=== PATIENT | female | born 1995 | race Two or more races ===

== ENCOUNTER 2018-10-04 10:51 | Observation (INO) | payer MEDICAID | END 2018-10-04 12:25 | disposition home or self-care (01) | DRG 563 | LOC: LDRP 10:51 | PROVIDERS: ADMIT Specialist; ATTEND Specialist | DX: O60.03 Preterm labor without delivery, third trimester (principal); Z3A.34 34 weeks gestation of pregnancy | CPT/HCPCS: 59025; 76818; 81002; G0378 ==

== ENCOUNTER 2018-10-07 11:02 | Observation (INO) | payer MEDICAID ==
[2018-10-07] MEDS ORDERED: PREN-96 PO (11:55)
== END 2018-10-07 13:20 | disposition home or self-care (01) | DRG 566 ==
LOC: LDRP 11:02
PROVIDERS: ADMIT Specialist; ATTEND Specialist
DX: O26.893 Other specified pregnancy related conditions, third trimester (principal); H53.8 Other visual disturbances; Z3A.35 35 weeks gestation of pregnancy
CPT/HCPCS: 59025; 76818; 81002; G0378

== ENCOUNTER 2018-10-11 13:07 | Observation (INO) | payer MEDICAID ==
[~2018-10-11 13:07] MED LIST: PREN-96 PO
[2018-10-11] MEDS ORDERED: PREN-96 PO (14:03)
== END 2018-10-11 13:55 | disposition home or self-care (01) | DRG 566 ==
LOC: LDRP 13:07
PROVIDERS: ADMIT Specialist; ATTEND Specialist
DX: O35.8XX0 Maternal care for other (suspected) fetal abnormality and damage, not applicable or unspecified (principal); Z3A.35 35 weeks gestation of pregnancy
CPT/HCPCS: 59025; 76818; 81002; G0378

== ENCOUNTER 2018-10-18 15:03 | Observation (INO) | payer MEDICAID | END 2018-10-18 16:45 | disposition home or self-care (01) | DRG 566 | LOC: LDRP 15:03 | PROVIDERS: ADMIT Obstetrics & Gynecology; ATTEND Obstetrics & Gynecology | DX: O36.5930 Maternal care for other known or suspected poor fetal growth, third trimester, not applicable or unspecified (principal); Z3A.36 36 weeks gestation of pregnancy; Z88.0 Allergy status to penicillin | CPT/HCPCS: 59025; 76818; 81002; G0378 ==

== ENCOUNTER 2018-10-25 11:40 | Observation (INO) | payer MEDICAID | END 2018-10-25 15:51 | disposition home or self-care (01) | DRG 566 | LOC: LDRP 14:20 | PROVIDERS: ADMIT Specialist; ATTEND Specialist | DX: O36.5930 Maternal care for other known or suspected poor fetal growth, third trimester, not applicable or unspecified (principal); O26.893 Other specified pregnancy related conditions, third trimester; M54.9 Dorsalgia, unspecified; O69 Labor and delivery complicated by umbilical cord complications; Z3A.37 37 weeks gestation of pregnancy | CPT/HCPCS: 59025; 76818; 81002; G0378 ==

== ENCOUNTER 2018-10-30 10:23 | Observation (INO) | payer MEDICAID ==
[~2018-10-30] VITALS: Ht 152.4 cm; Wt 57.6 kg
== END 2018-11-01 15:00 | disposition home or self-care (01) | DRG 560 ==
LOC: LDRP 11-01 13:15
PROVIDERS: ADMIT Specialist; ATTEND Specialist
DX: O69.5XX1 Labor and delivery complicated by vascular lesion of cord, fetus 1 (principal); O26.893 Other specified pregnancy related conditions, third trimester; Z3A.38 38 weeks gestation of pregnancy
CPT/HCPCS: 59025; 76805; 76818; 81002; G0378

== ENCOUNTER 2018-11-05 17:00 | Observation (INO) | payer MEDICAID | END 2018-11-05 18:00 | disposition home or self-care (01) | DRG 560 | LOC: LDRP 17:00 | PROVIDERS: ADMIT Specialist; ATTEND Specialist | DX: O69.5XX2 Labor and delivery complicated by vascular lesion of cord, fetus 2 (principal); Z3A.39 39 weeks gestation of pregnancy | CPT/HCPCS: 59025; 76818; 81002; G0378 ==

== ENCOUNTER 2018-11-08 14:32 | Observation (INO) | payer MEDICAID | END 2018-11-08 17:06 | disposition home or self-care (01) | DRG 566 | LOC: LDRP 14:32 | PROVIDERS: ADMIT Obstetrics & Gynecology; ATTEND Obstetrics & Gynecology | DX: O36.5930 Maternal care for other known or suspected poor fetal growth, third trimester, not applicable or unspecified (principal); O26.893 Other specified pregnancy related conditions, third trimester; O21.2 Late vomiting of pregnancy; R51 Headache; O36.8130 Decreased fetal movements, third trimester, not applicable or unspecified; O69.5XX2 Labor and delivery complicated by vascular lesion of cord, fetus 2; Z3A.39 39 weeks gestation of pregnancy | CPT/HCPCS: 59025; 76805; 76818; 81002; G0378 ==

== ENCOUNTER 2018-11-11 02:50 | Observation (INO) | payer MEDICAID ==
[~2018-11-11] VITALS: Ht 152.4 cm; Wt 54.4 kg
== END 2018-11-11 03:55 | disposition home or self-care (01) | DRG 566 ==
LOC: LDRP 02:50
PROVIDERS: ADMIT Obstetrics & Gynecology; ATTEND Obstetrics & Gynecology
DX: O62.9 Abnormality of forces of labor, unspecified (principal); O26.893 Other specified pregnancy related conditions, third trimester; N89.8 Other specified noninflammatory disorders of vagina; O48.0 Post-term pregnancy; Z3A.40 40 weeks gestation of pregnancy
CPT/HCPCS: 59025; 81002; G0378

== ENCOUNTER → 2023-08-01 | Outpatient (CLI) | payer MEDICAID ==
[2023-08-01 11:51] LABS: Basophils # (auto) 0 10 ^3/uL (0-0.2); Basophils % (auto) 0.4 % (0.0-2.0); Eosinophils # (auto) 0 10 ^3/uL (0-0.8); Eosinophils % (auto) 0.5 % (0.0-7.0); Lymphocytes # (auto) 2.2 10 ^3/uL (0.4-5.4); Mean Corpuscular Hgb Conc. 34.9 g/dL (32.0-36.0); Mean Corpuscular Volume 88.7 fL (80.0-100.0); Monocytes # (auto) 0.4 10 ^3/uL (0-1.3); Monocytes % (auto) 5.2 % (0.0-12.0); Neutrophils # (auto) 4.4 10 ^3/uL (1.6-8.6); Neutrophils % (auto) 62.9 % (37.0-80.0); Nucleated Red Blood Cells % 0.1 %; Red Blood Cells 4.51 10^6/uL (4.0-5.20); Red Cell Distribution Width 13.2 % (11.8-14.3); White Blood Cell 6.9 10^3/uL (4.4-10.8)
[2023-08-01 12:09] LABS: Amphetamine Screen, Urine Neg (NEGATIVE); Barbiturate Scree,Urine Neg (NEGATIVE); Benzodiazephine Screen, Urine Neg (NEGATIVE); Cannabinoid Screen, Urine Neg (NEGATIVE); Cocaine Screen, Urine Neg (NEGATIVE); Opiate Scree,Urine Neg (NEGATIVE); Phencyclidine Screen, Urine Neg (NEGATIVE)
[2023-08-01 12:14] LABS: Alanine Aminotransferase 20 U/L (7-40); Albumin 4.5 g/dL (3.2-4.8); Alkaline Phosphatase 60 U/L (46-116); Anion Gap 9 (5-15); Aspartate Aminotransferase 17 U/L (13-40); Calcium 9.6 mg/dL (8.5-10.1); Carbon Dioxide 22 mmol/L (20-30); Chloride 105 mmol/L (98-107); Cholesterol 181 mg/dL (< 200); Glucose 83 mg/dL (74-106); LDL Cholesterol 107 mg/dL (< 100); Potassium 3.7 mmol/L (3.5-5.1); Sodium 136 mmol/L (136-145); Triglycerides 143 mg/dL (< 150)
[2023-08-01 12:15] LABS: Bilirubin, Total 0.5 mg/dL (0.2-1.0); HDL Cholesterol 55 mg/dL (40-59); Total Protein 7.6 g/dL (5.7-8.2)
[2023-08-01 12:18] LABS: BUN/Creatinine Ratio 8.8 (10.0-20.0); Blood Urea Nitrogen < 5 mg/dL (9-23)
[2023-08-01 12:24] LABS: Beta HCG, Quantitative 99903.8 mIU/mL (1.5-4.2)
[2023-08-02 07:07] LABS: RPR Non Reactive (Non Reactive)
[2023-08-02 08:07] LABS: Varicella Zoster IgG Antibody 1195 index (Immune >165)
[2023-08-02 22:06] LABS: Chlamydia Trachomatis, NAA Positive (Negative); Neisseria gonorrhoeae, NAA Negative (Negative)
[2023-08-03 12:06] LABS: QuantiFERON-TB Gold Plus Negative (Negative)
== END | disposition home or self-care (01) ==
LOC: LAB 11:11
PROVIDERS: ATTEND Obstetrics & Gynecology
DX: Z34.80 Encounter for supervision of other normal pregnancy, unspecified trimester (principal); Z31.430 Encounter of female for testing for genetic disease carrier status for procreative management; N39.0 Urinary tract infection, site not specified; Z36.0 Encounter for antenatal screening for chromosomal anomalies; Z3A.00 Weeks of gestation of pregnancy not specified
CPT/HCPCS: 36415; 80053; 80061; 80307; 83036; 84439; 84443; 84702; 85025; 86592; 86703; 86762; 86787; 86850; 86900; 86901; 87086; 87340

== ENCOUNTER 2023-08-22 16:29 | Emergency (ER) | payer MEDICAID ==
[~2023-08-22] VITALS: Ht 157.5 cm; Wt 63.7 kg
[2023-08-22 18:38] LABS: Urine Bacteria None Seen /hpf (None Seen)
[2023-08-22] MEDS: PROMETHAZINE HCL 6.25 MG/5 ML ORAL SYRUP PO ONE (18:50)
[2023-08-22 18:59] LABS: Urine Blood Negative /uL (Negative); Urine Clarity Turbid (Clear); Urine Color Yellow (Yellow); Urine Mucus FEW (None Seen); Urine Protein, UAD 1+ (Negative); Urine Specific Gravity 1.022 (1.001-1.035); Urine Urobilinogen Normal (Negative); Urine WBC 9 /hpf (0 - 5)
[2023-08-22] MEDS ORDERED: ACET500T58 PO (19:20)
[2023-08-22] MEDS ORDERED: CEPH500C PO (19:20)
[2023-08-22 20:14] LABS: Rapid Influenza A Negative (Negative); Rapid Influenza B Negative (Negative)
[2023-08-22 20:15] LABS: COVID19 ANTIGEN SOFIA FIA NEGATIVE (NEGATIVE)
[2023-08-22 20:59] VITALS: BP 119/84; PULSE 87; RESP 16; TEMP 98; O2SAT 100
== END 2023-08-22 21:01 | disposition home or self-care (01) ==
LOC: ER 16:29
DX: O23.42 Unspecified infection of urinary tract in pregnancy, second trimester (principal); N39.0 Urinary tract infection, site not specified; R51.9 Headache, unspecified; J06.9 Acute upper respiratory infection, unspecified; Z3A.14 14 weeks gestation of pregnancy; Z20.822 Contact with and (suspected) exposure to COVID-19
CPT/HCPCS: 36415; 81001; 87426; 87804

== ENCOUNTER → 2023-10-30 | Outpatient (CLI) | payer MEDICAID ==
[~2023-10-30] MED LIST changes: +ACET500T58 PO; +CEPH500C PO
[2023-10-30 09:13] LABS: Basophils # (auto) 0 10 ^3/uL (0-0.2); Basophils % (auto) 0.3 % (0.0-2.0); Eosinophils # (auto) 0 10 ^3/uL (0-0.8); Eosinophils % (auto) 0.6 % (0.0-7.0); Hematocrit 35.2 % (36.0-46.0); Hemoglobin 12.4 g/dL (12.2-16.2); Lymphocytes # (auto) 1.7 10 ^3/uL (0.4-5.4); Lymphocytes % (auto) 24.8 % (10.0-50.0); Mean Corpuscular Hemoglobin 32.1 pg (28.0-32.0); Mean Corpuscular Hgb Conc. 35.3 g/dL (32.0-36.0); Monocytes # (auto) 0.4 10 ^3/uL (0-1.3); Monocytes % (auto) 5.7 % (0.0-12.0); Neutrophils # (auto) 4.6 10 ^3/uL (1.6-8.6); Neutrophils % (auto) 68.6 % (37.0-80.0); Platelet Count (auto) 266 10^3/uL (140-450); Red Blood Cells 3.86 10^6/uL (4.0-5.20); Red Cell Distribution Width 13.7 % (11.8-14.3); White Blood Cell 6.8 10^3/uL (4.4-10.8)
[2023-10-30 09:57] LABS: Alanine Aminotransferase 30 U/L (7-40); Albumin 3.8 g/dL (3.2-4.8); Alkaline Phosphatase 76 U/L (46-116); Anion Gap 9 (5-15); Aspartate Aminotransferase 21 U/L (13-40); Calcium 9.1 mg/dL (8.7-10.4); Carbon Dioxide 21 mmol/L (20-30); Chloride 107 mmol/L (98-107); Glucose 81 mg/dL (74-106); Potassium 3.9 mmol/L (3.5-5.1); Sodium 137 mmol/L (136-145)
[2023-10-30 09:58] LABS: BUN/Creatinine Ratio 10.4 (10.0-20.0); Bilirubin, Total 0.5 mg/dL (0.2-1.0); Blood Urea Nitrogen < 5 mg/dL (9-23); Total Protein 6.6 g/dL (5.7-8.2)
[2023-10-31 08:06] LABS: RPR Non Reactive (Non Reactive)
[2023-10-31 22:06] LABS: Chlamydia Trachomatis, NAA Negative (Negative); Neisseria gonorrhoeae, NAA Negative (Negative)
== END | disposition home or self-care (01) ==
LOC: LAB 08:49
PROVIDERS: ATTEND Obstetrics & Gynecology
DX: Z34.00 Encounter for supervision of normal first pregnancy, unspecified trimester (principal); Z3A.00 Weeks of gestation of pregnancy not specified
CPT/HCPCS: 36415; 80053; 82951; 83036; 84439; 84443; 85025; 86592; 86850; 86900; 86901

== ENCOUNTER 2024-02-15 10:50 | Inpatient (IN) | payer MEDICAID ==
[~2024-02-15] VITALS: Ht 160 cm; Wt 66.7 kg
--- NOTE | 2024-02-15 13:51 | DVH ---
BIOPHYSICAL PROFILE HISTORY: bleeding TECHNIQUE: Multiple transabdominal real-time grayscale sonographic images through the gravid uterus of the fetus with duplex Doppler color flow and M-mode spectral analysis FINDINGS: BIOPHYSICAL PROFILE: breathing score: 2 movement score: 2 tone score: 2 Quantitative PLACIDO score: 2 (PLACIDO: 9 Cm.) Total score: 8 The cervix was not seen Single live fetus in cephalic presentation. heart rate 141 beats per minute. Grade I placenta without previa or abruption IMPRESSION: Biophysical profile score: 8
--- NOTE | 2024-02-15 15:00 | DVHHP ---
ADMIT DATE: 02/15/2024 CHIEF COMPLAINT: Nonreassuring heart tracing. HISTORY OF PRESENT ILLNESS: The patient is a 28-year-old 2, para 1 with EDC 02/18/2024, estimated gestational age of 39+ weeks, admitted for induction of labor secondary to some subtle, small variables, patient was supposed to be induced on Monday. Subsequently, we decided to keep the patient for induction. PAST MEDICAL HISTORY: None. PAST SURGICAL HISTORY: None. SOCIAL HISTORY: None. FAMILY HISTORY: None. OBSTETRIC AND GYNECOLOGIC HISTORY: One normal vaginal delivery. REVIEW OF SYSTEMS: Consistent with HPI. PHYSICAL EXAMINATION: VITAL SIGNS: Stable, afebrile. HEENT: Within normal limits. CARDIOVASCULAR: Regular rate and rhythm. LUNGS: Clear to auscultation. BREASTS: Symmetrical. No masses. ABDOMEN: Gravid. Positive heart. PELVIC: 1 cm, 50%, -2. EXTREMITIES: No clubbing, cyanosis or edema. IMPRESSION: Intrauterine at 39+ weeks, induction of labor. PLAN: Expectant vaginal delivery. Informed consent obtained. DO DOROTEO Oviedo/JULIET TID: [id number] RECEIPT: [id number]
[2024-02-15] MEDS ORDERED: LIDOCAINE 2%HCL (LOCAL ANESTH.) INJ 20ML MDV IJ PRN (15:45)
[2024-02-15] MEDS ORDERED: BUTORPHANOL TARTRATE 2 MG/1 ML VIAL IV PRN ×2 (15:45)
--- NOTE | 2024-02-15 15:46 | DVHPN2 ---
Chief Complaints Patient reports: No new complaints Nursing reports: No new complaints Objective Medications Current Medications Medications (Trade) Dose Ordered Sig/Felice Route PRN Reason Start Time Stop Time Status Last Admin Benzocaine (Dermoplast) 1 applic PRN PRN TOP PERINEAL AREA DISCOMFORT 02/15/24 15:45 UNV Butorphanol Tartrate (Stadol Injection) 1 mg Q4HPRN PRN IV MODERATE PAIN (4-6 PAIN SCALE) 02/15/24 15:45 UNV Butorphanol Tartrate (Stadol Injection) 2 mg Q4HPRN PRN IV SEVERE PAIN (7-10 PAIN SCALE) 02/15/24 15:45 UNV Clindamycin Phosphate 50 ml @ 50 mls/hr Q8HR IV 02/15/24 22:00 UNV Lactated Ringer's 1,000 ml @ 125 mls/hr Q8H IV 02/15/24 15:45 UNV Lidocaine HCl (Xylocaine) 20 ml ONCE PRN IJ PERINEAL AREA DISCOMFORT 02/15/24 15:45 UNV Sodium Lauryl Sulfate (Phisoderm) 240 ml PRN PRN TOP PERINEAL AREA DISCOMFORT 02/15/24 15:45 UNV Witch Clementine (Tucks) 1 pad PRN PRN TOP PERINEAL AREA DISCOMFORT 02/15/24 15:45 UNV Others VE-UNCHANGED Ass/Plan Assessment IUP AT 39WKS IOL Plan SUPPORTIVE CARE DELORIS YEH DO Feb 15, 2024 15:46
[2024-02-15 16:31] LABS: Basophils # (auto) 0 10 ^3/uL (0-0.2); Basophils % (auto) 0.3 % (0.0-2.0); Eosinophils # (auto) 0 10 ^3/uL (0-0.8); Eosinophils % (auto) 0.4 % (0.0-7.0); Hematocrit 33.9 % (36.0-46.0); Hemoglobin 11.3 g/dL (12.2-16.2); Lymphocytes # (auto) 2.2 10 ^3/uL (0.4-5.4); Lymphocytes % (auto) 26.1 % (10.0-50.0); Mean Corpuscular Hemoglobin 27.6 pg (28.0-32.0); Mean Corpuscular Hgb Conc. 33.4 g/dL (32.0-36.0); Mean Corpuscular Volume 82.7 fL (80.0-100.0); Monocytes # (auto) 0.4 10 ^3/uL (0-1.3); Monocytes % (auto) 4.6 % (0.0-12.0); Neutrophils # (auto) 5.6 10 ^3/uL (1.6-8.6); Neutrophils % (auto) 68.6 % (37.0-80.0); Platelet Count (auto) 197 10^3/uL (140-450); Red Cell Distribution Width 14.8 % (11.8-14.3); White Blood Cell 8.2 10^3/uL (4.4-10.8)
[2024-02-15 16:48] LABS: INR 0.95 (0.9-1.15); Partial Thromboplastin Time 29.6 SEC (24.5-34.5); Prothrombin Time 10.1 sec (9.3-11.8)
[2024-02-15 16:58] LABS: Alanine Aminotransferase 11 U/L (7-40); Albumin 3.7 g/dL (3.2-4.8); Alkaline Phosphatase 176 U/L (46-116); Anion Gap 7 (5-15); Aspartate Aminotransferase 15 U/L (13-40); BUN/Creatinine Ratio 9.6 (10.0-20.0); Bilirubin, Total 0.3 mg/dL (0.2-1.0); Blood Urea Nitrogen < 5 mg/dL (9-23); Calcium 9.2 mg/dL (8.7-10.4); Carbon Dioxide 24 mmol/L (20-31); Chloride 108 mmol/L (98-107); Glucose 74 mg/dL (74-106); Sodium 139 mmol/L (136-145); Total Protein 6.5 g/dL (5.7-8.2)
[2024-02-15 17:27] LABS: Urine Bacteria None Seen /hpf (None Seen); Urine WBC None Seen /hpf (0 - 5)
[2024-02-15 17:48] LABS: Urine Blood Negative /uL (Negative); Urine Clarity Clear (Clear); Urine Color Colorless (Yellow); Urine Protein, UAD Negative (Negative); Urine Specific Gravity 1.002 (1.001-1.035); Urine Urobilinogen Normal (Negative); Urine pH 6.5 (5.0-9.0)
[2024-02-15 17:56] LABS: Amphetamine Screen, Urine Neg (NEGATIVE); Barbiturate Scree,Urine Neg (NEGATIVE); Benzodiazephine Screen, Urine Neg (NEGATIVE); Cocaine Screen, Urine Neg (NEGATIVE)
[2024-02-15 17:57] LABS: Cannabinoid Screen, Urine Neg (NEGATIVE); Opiate Scree,Urine Neg (NEGATIVE); Phencyclidine Screen, Urine Neg (NEGATIVE)
[2024-02-15] MEDS: LACTATED RINGER'S 1,000 ML IV SCH (23:38)
[2024-02-16] MEDS ORDERED: ePHEDrine SULFATE 50 MG/ML AMP IV ONE (01:15)
[2024-02-16] MEDS ORDERED: NALOXONE HCL 0.4 MG/ML VIAL IV ONE (01:15)
[2024-02-16] MEDS ORDERED: LIDOCAINE HCL 2 %PF INJ 10ML AMP IJ ONE (01:15)
[2024-02-16] MEDS: LACTATED RINGER'S 1,000 ML IV ONE (01:56)
[2024-02-16] MEDS: ROPIVACAINE HCL 100 ML ONE (02:47)
[2024-02-16] MEDS: PHISODERM TOP SOLN 240ML BTL TOP PRN (02:50)
[2024-02-16] MEDS: DERMOPLAST 60ML BOTTLE TOP PRN (02:50)
[2024-02-16] MEDS: WITCH HAZEL-GLYCERIN PAD TOP PRN (02:50)
[2024-02-16] MEDS: CLINDAMYCIN 300MG IV 50 ML IV SCH (02:51)
[2024-02-16] MEDS: CLINDAMYCIN 900MG IV 50 ML IV SCH (03:08)
[2024-02-16] MEDS ORDERED: LIDOCAINE 2% (LOCAL ANESTH.) PF 5ml SDV ONE (05:31)
[2024-02-16] MEDS ORDERED: MORPHINE SULF PF 5 MG/10 ML VIAL ONE (05:31)
[2024-02-16] MEDS ORDERED: ONDANSETRON HCL 4 MG/2 ML VIAL ONE (05:33)
[2024-02-16] MEDS ORDERED: oxyTOCIN 10 UNIT/ML 10ML VIAL ONE (05:33)
[2024-02-16] MEDS ORDERED: CARBOPROST TROMETHAMINE 250 MCG/1ML VIAL IM PRN (05:45)
[2024-02-16] MEDS ORDERED: ONDANSETRON HCL 4 MG/2 ML VIAL IV PRN (05:45)
[2024-02-16] MEDS ORDERED: METHYLERGONOVINE MALEATE 0.2 MG/ML AMP IM PRN (05:45)
[2024-02-16] MEDS: LACT. RINGERS/OXYTOCIN 20UNITS 500 ML IV ONE ×2 (06:14)
[2024-02-16] MEDS ORDERED: ONDANSETRON ODT 4 MG TAB PO PRN (07:00)
[2024-02-16] MEDS ORDERED: ACETAMINOPHEN 325 MG TAB PO PRN (07:00)
[2024-02-16 07:06] LABS: RPR Non Reactive (Non Reactive)
--- NOTE | 2024-02-16 07:10 | LDN2 ---
Labor and Delivery Note Date 02/16/24 Age 28 2 Para 2 EDC 12-15 EGA 39wks Diagnosis iol for non reassuring fht ,iugr Vaginal Delivery: VTX Vacuum Assisted: Yes Placenta: Spontaneous Sex: Male Apgars 8-9 Nuchal Cord Transected: No Amniotic Fluid: Clear Anesthesia epidural Episiotomy: No Extension: No EBL 300ml Labs Laboratory Tests 02/15/24 16:11: Hepatitis B Surface Antigen Negative, HIV (1&2) Antibody Negative 08/01/23 11:23: Rubella Antibody Positive Blood Bank 02/15/24 16:11: Blood Type O POSITIVE Complications none Conditions stable Comments/Significant Med Lidia spec exam no cxal lac,cord ph 7.25 DELORIS YEH DO Feb 16, 2024 07:09
[2024-02-16 08:06] LABS: Rubella Antibodies, IgG 3.49 index (Immune >0.99)
[2024-02-16] MEDS ORDERED: DIPHENOXYLATE W/ATROPINE 2.5 MG TAB PO SCH (10:00)
[2024-02-16 11:00] VITALS: BP 116/66; PULSE 63; RESP 18; TEMP 98.6; O2SAT 97
[2024-02-16] MEDS: IBUPROFEN 600 MG TAB PO PRN (13:05)
[2024-02-16 15:00] VITALS: BP 112/77; PULSE 77; RESP 16; TEMP 98; O2SAT 97
[2024-02-16 19:00] VITALS: BP 110/73; PULSE 74; RESP 16; TEMP 97.8; O2SAT 98
[2024-02-16 23:00] VITALS: BP 112/71; PULSE 65; RESP 16; TEMP 97.9; O2SAT 100
[2024-02-17 03:00] VITALS: BP 98/66; PULSE 58; RESP 18; TEMP 98.2; O2SAT 100
[2024-02-17 06:45] VITALS: BP 117/74; PULSE 63; RESP 16; TEMP 97.8; O2SAT 98
--- NOTE | 2024-02-17 06:52 | DVHPN2 ---
Progress Note Date Seen: Feb 17, 2024 Subjective PPD#1 s/p doing well Denies pain. Lochia minimal. AFeb vital signs Vital Sign Date Time Temp Pulse Resp B/P (MAP) Pulse Ox O2 Delivery O2 Flow Rate FiO2 02/17/24 03:00 98.2 58 18 98/66 (77) 100 98.2 02/16/24 19:00 Room Air 0.0 Total Intake and Output 02/16/24 02/16/24 02/17/24 15:00 23:00 07:00 Output Total 300 ml 400 ml Balance -300 ml -400 ml medications Current Medications Medications Dose Ordered Sig/Felice Route Start Time Stop Time Status Last Admin Dose Admin Turner Clementine 1 pad PRN PRN TOP 02/15/24 15:45 02/16/24 02:50 1 PAD Sodium Lauryl Sulfate 240 ml PRN PRN TOP 02/15/24 15:45 02/16/24 02:50 240 ML Benzocaine 1 applic PRN PRN TOP 02/15/24 15:45 02/16/24 02:50 1 APPLIC Butorphanol Tartrate 1 mg Q4HPRN PRN IV 02/15/24 15:45 Butorphanol Tartrate 2 mg Q4HPRN PRN IV 02/15/24 15:45 Lidocaine HCl 20 ml ONCE PRN IJ 02/15/24 15:45 Ondansetron HCl 4 mg Q4HP PRN IV 02/16/24 05:45 Ibuprofen 600 mg Q6HP PRN PO 02/16/24 07:00 02/16/24 20:47 600 MG Acetaminophen 650 mg Q4HP PRN PO 02/16/24 07:00 Ondansetron HCl 4 mg Q4HPRN PRN PO 02/16/24 07:00 laboratory and microbiology Laboratory Tests 02/15/24 16:11 Test 02/15/24 16:11 Range/Units Serum Glucose 74 74-106 mg/dL Objective O: AFVSS Chest: heart and lung sounds normal. Abd soft, non-tender, fundus firm, BS, no rebound or guarding, Ext Neg Homans, Non-tender, edema Lochia - minimal Labs reviewed Assessment/Plan 28y s/p doing well PPD#2 Plan D/C planning supportive care Plan discussed with: Patient LESLI CROWLEY DO Feb 17, 2024 06:52
[2024-02-17] MEDS ORDERED: IBU600T PO (06:55)
--- NOTE | 2024-02-17 06:56 | DVHDS2 ---
Physician Discharge Progress N Final Diagnosis: Term , delivered s/p Operations or Procedures: Operations or Procedures uncomplicated Commentary: Commentary NOrmal labor and delivery uncomplicated Normal course Condition on Discharge: Stable Disposition: Home Discharge Instructions: Diet: Regular Activity: Light activity Activity comment: Pelvic Rest x 6 weeks Follow Up/Referral: [address] Crowley Medications: Ibuprofen PRN Follow Up Care: Discharge Statement: "Patient was advised to return to the ER or call 911 if any headaches, dizz iness, shortness of breath, chest pain, abdominal pain, bleeding, fevers, or worsening of medical condition. Patient was counseled about treatment plan, medications, possible side effects, patientverbalized understanding. All questions were answered to the best of my ability. This discharge took greater then 30 minutes in planning, reviewing documentation, counseling the patient, and discussing with other team members." LESLI CROWLEY DO Feb 17, 2024 06:56
[2024-02-17 09:23] LABS: Basophils # (auto) 0 10 ^3/uL (0-0.2); Basophils % (auto) 0.2 % (0.0-2.0); Eosinophils # (auto) 0.1 10 ^3/uL (0-0.8); Eosinophils % (auto) 0.9 % (0.0-7.0); Hematocrit 30.5 % (36.0-46.0); Hemoglobin 10.1 g/dL (12.2-16.2); Lymphocytes # (auto) 1.8 10 ^3/uL (0.4-5.4); Lymphocytes % (auto) 26.4 % (10.0-50.0); Mean Corpuscular Hemoglobin 27.6 pg (28.0-32.0); Mean Corpuscular Volume 83.5 fL (80.0-100.0); Monocytes # (auto) 0.3 10 ^3/uL (0-1.3); Monocytes % (auto) 4.8 % (0.0-12.0); Neutrophils # (auto) 4.7 10 ^3/uL (1.6-8.6); Neutrophils % (auto) 67.7 % (37.0-80.0); Nucleated Red Blood Cells % 0.1 %; Platelet Count (auto) 166 10^3/uL (140-450); Red Blood Cells 3.65 10^6/uL (4.0-5.20); Red Cell Distribution Width 14.7 % (11.8-14.3); White Blood Cell 6.9 10^3/uL (4.4-10.8)
[2024-02-17 11:15] VITALS: BP 121/82; PULSE 80; RESP 16; TEMP 97.8; O2SAT 97
== END 2024-02-17 11:25 | disposition home or self-care (01) | DRG 560 ==
LOC: LDRP 10:50 → UNDOADMOB 10:50 → LDRP 11:28 → OBSVTOIN 14:35 → LDRP 14:42
PROVIDERS: ADMIT Obstetrics & Gynecology; ATTEND Obstetrics & Gynecology
PROC: 10D07Z6 Extraction of Products of Conception, Vacuum, Via Natural or Artificial Opening (ICD-10-PCS; principal; 2024-02-16)
PROC: 3E0R3BZ Introduction of Anesthetic Agent into Spinal Canal, Percutaneous Approach (ICD-10-PCS; 2024-02-16)
PROC: 00HU33Z Insertion of Infusion Device into Spinal Canal, Percutaneous Approach (ICD-10-PCS; 2024-02-16)
PROC: 3E033VJ Introduction of Other Hormone into Peripheral Vein, Percutaneous Approach (ICD-10-PCS; 2024-02-16)
DX: O80 Encounter for full-term uncomplicated delivery (principal); Z37.0 Single live birth; Z3A.39 39 weeks gestation of pregnancy
CPT/HCPCS: 36415; 59025; 59409; 62282; 76818; 80053; 80307; 81001; 81002; 85025; 85610; 85730; 86592; 86703; 86762; 86803; 86850; 86900; 86901; 87340; 94760; 94762; 96360; 96361; 96365; G0378; J2003; J2405; J2590; J3490